=== PATIENT | male | born 1955 | race African-American/Black ===

== ENCOUNTER 2023-03-15 19:21 | Inpatient (IN) | payer MEDICARE, MEDICAID ==
[~2023-03-15] VITALS: Ht 172.7 cm; Wt 103.4 kg
[~2023-03-15 19:21] MED LIST: NO HOME MEDS
[2023-03-15] MEDS ORDERED: GADOTERATE MEGLUMINE 10 MMOL/20 ML VIAL IVP ONE (20:42)
[2023-03-15 21:14] LABS: BASOPHILS % (AUTO) 0.5 % (0.0-2.0); EOSINOPHILS % (AUTO) 5.4 % (1.0-6.0); HEMATOCRIT 37.5 % (41-53); HEMOGLOBIN 12.8 g/dL (13.5-17.5); LYMPHOCYTES # (AUTO) 1.6 K/uL (1.0-4.8); LYMPHOCYTES % (AUTO) 32.8 % (22.0-44.0); MEAN CORPUSCULAR VOLUME 85 fL (80-100); MONOCYTES # (AUTO) 0.4 K/uL (0.1-1.0); MONOCYTES % (AUTO) 7.3 % (2.0-9.0); NEUTROPHILS # (AUTO) 2.6 K/uL (1.8-7.7); PLATELET COUNT (AUTO) 241 K/uL (150-450); RED CELL DISTRIBUTION WIDTH 14.7 % (11.5-14.5)
[2023-03-15 21:23] LABS: ANION GAP 7 mmol/L (8-16); CALCIUM, TOTAL 9.1 mg/dL (8.8-10.5); CARBON DIOXIDE 29 mmol/L (22-29); CHLORIDE 101 mmol/L (98-107); CREATININE 0.94 mg/dL (0.60-1.30); GLOMERULAR FILTR. RATE CALC > 60 mL/min (>60); GLUCOSE,RANDOM 134 mg/dL (70-110); POTASSIUM 3.4 mmol/L (3.5-5.1); SODIUM SERUM 137 mmol/L (136-145)
[2023-03-15 21:25] LABS: INR 1.1 (0.9-1.1); PROTHROMBIN TIME 11.1 SEC (9.4-11.6)
[2023-03-15 21:28] LABS: ALANINE AMINOTRANSFERASE 24 U/L (12-78); ALBUMIN 3.3 g/dL (3.4-5.0); ALKALINE PHOSPHATASE 79 U/L (46-116); ASPARTATE AMINOTRANSFERASE 32 U/L (15-37); BILIRUBIN,TOTAL 0.5 mg/dL (0.1-1.0); C-REACTIVE PROTEIN QUANT 1.17 mg/dL (0.00-0.30); TOTAL PROTEIN, SERUM 7.7 g/dL (6.4-8.2)
[2023-03-15] MEDS ORDERED: ZOLPIDEM TARTRATE 5 MG TABLET PO PRN (23:15)
[2023-03-15] MEDS ORDERED: IPRATROPIUM BROMIDE 0.5 MG/2.5 ML NEB SOLUTION NEB PRN (23:15)
[2023-03-15] MEDS ORDERED: BISACODYL 10 MG RECTAL RECTAL SUPPOSITORY PR PRN (23:15)
[2023-03-15] MEDS ORDERED: MORPHINE SULFATE 2 MG/ML SYRINGE IVP PRN (23:15)
[2023-03-15] MEDS ORDERED: ACETAMINOPHEN 325 MG TABLET PO PRN (23:15)
[2023-03-15] MEDS ORDERED: ONDANSETRON HCL 4 MG/2 ML VIAL IVP PRN (23:15)
[2023-03-15] MEDS ORDERED: ALBUTEROL SULFATE 2.5 MG/0.5 ML NEB SOLUTION NEB PRN (23:15)
[2023-03-15 23:18] VITALS: BP 132/72
[2023-03-16] MEDS: HEPARIN SODIUM,PORCINE 5,000 UNITS/ML VIAL SQ SCH ×4 (00:15→23:12)
[2023-03-16] MEDS: HYDROCODONE/ACETAMINOPHEN 5-325 MG TABLET PO PRN ×4 (00:15→23:30)
[2023-03-16 04:00] VITALS: BP 120/70
[2023-03-16 07:47] VITALS: BP 110/56
[2023-03-16] MEDS: DOCUSATE SODIUM 100 MG CAPSULE PO SCH ×2 (09:32→19:51)
[2023-03-16] MEDS: PANTOPRAZOLE SODIUM 40 MG/VIAL IVP SCH (09:32)
[2023-03-16 14:31] LABS: GLUCOMETER DEV NAME(LOC) 6N.2B; GLUCOSE,POINT OF CARE 118 MG/DL (70-110)
[2023-03-16] MEDS: FUROSEMIDE 20 MG/2 ML VIAL IVP SCH (14:46)
[2023-03-16 16:37] VITALS: BP 121/74
[2023-03-16] MEDS: MORPHINE SULFATE 2 MG/ML SYRINGE IVP PRN (18:54)
[2023-03-16 19:16] VITALS: BP 139/81
[2023-03-16] MEDS: MAGNESIUM HYDROXIDE SUSPENSION 30 ML UDCUP PO PRN (19:51)
[2023-03-17 04:06] VITALS: BP 126/72
[2023-03-17 07:35] VITALS: BP 134/78
[2023-03-17] MEDS: HEPARIN SODIUM,PORCINE 5,000 UNITS/ML VIAL SQ SCH ×3 (08:29→23:19)
[2023-03-17] MEDS: FUROSEMIDE 20 MG/2 ML VIAL IVP SCH (08:30)
[2023-03-17] MEDS: PANTOPRAZOLE SODIUM 40 MG/VIAL IVP SCH (08:35)
[2023-03-17] MEDS: DOCUSATE SODIUM 100 MG CAPSULE PO SCH ×2 (08:36→20:10)
[2023-03-17] MEDS: MAGNESIUM HYDROXIDE SUSPENSION 30 ML UDCUP PO PRN (08:41)
[2023-03-17] MEDS: MORPHINE SULFATE 2 MG/ML SYRINGE IVP PRN (08:49)
[2023-03-17 11:57] LABS: GLUCOMETER DEV NAME(LOC) 4E.2; GLUCOSE,POINT OF CARE 167 MG/DL (70-110)
[2023-03-17] MEDS: HYDROCODONE/ACETAMINOPHEN 5-325 MG TABLET PO PRN (15:21)
[2023-03-17] MEDS ORDERED: PREDAOS OS (15:36)
[2023-03-17] MEDS ORDERED: HYDR-4723 PO (15:36)
[2023-03-17] MEDS ORDERED: ATOR40TA28 PO (15:36)
[2023-03-17] MEDS ORDERED: LEVO137T24 PO (15:36)
[2023-03-17] MEDS ORDERED: ASPI-1450 PO (15:36)
[2023-03-17] MEDS ORDERED: TIRZ15PE SQ (15:36)
[2023-03-17] MEDS ORDERED: BICT1TAB PO (15:36)
[2023-03-17] MEDS ORDERED: LISI-894 PO (15:36)
[2023-03-17] MEDS ORDERED: CHL25 PO (15:36)
[2023-03-17] MEDS ORDERED: INSU100I70 SQ (15:39)
[2023-03-17] MEDS ORDERED: INSU100I15 SQ (15:43)
[2023-03-17 15:46] VITALS: BP 146/86
[2023-03-17 16:14] LABS: ANION GAP 4 mmol/L (8-16); CALCIUM, TOTAL 9.1 mg/dL (8.8-10.5); CARBON DIOXIDE 31 mmol/L (22-29); CHLORIDE 102 mmol/L (98-107); CREATININE 1.06 mg/dL (0.60-1.30); GLOMERULAR FILTR. RATE CALC > 60 mL/min (>60); GLUCOSE,RANDOM 228 mg/dL (70-110); POTASSIUM 3.6 mmol/L (3.5-5.1); SODIUM SERUM 137 mmol/L (136-145)
[2023-03-17] MEDS ORDERED: DEXTROSE 50%-WATER 25 GM/50 ML SYRINGE IVP PRN (17:45)
[2023-03-17] MEDS: INSULIN LISPRO 100 UNITS/ML SQ PRN (17:54)
[2023-03-17 20:11] VITALS: BP 137/72
[2023-03-17 20:41] LABS: GLUCOMETER DEV NAME(LOC) 6N.1; GLUCOSE,POINT OF CARE 216 MG/DL (70-110)
[2023-03-18] MEDS: FUROSEMIDE 20 MG TABLET PO SCH (07:58)
[2023-03-18] MEDS: PANTOPRAZOLE SODIUM 40 MG/VIAL IVP SCH (07:58)
[2023-03-18] MEDS: BICTEGRAV/EMTRICIT/TENOFOV ALA 50-200-25 MG TABLET PO SCH (07:58)
[2023-03-18] MEDS: HEPARIN SODIUM,PORCINE 5,000 UNITS/ML VIAL SQ SCH ×2 (08:00→16:05)
[2023-03-18] MEDS: DOCUSATE SODIUM 100 MG CAPSULE PO SCH ×2 (08:01→21:00)
[2023-03-18 08:09] VITALS: BP 134/82
[2023-03-18] MEDS: INSULIN LISPRO 100 UNITS/ML SQ PRN ×2 (11:46→17:25)
[2023-03-18 13:11] LABS: GLUCOMETER DEV NAME(LOC) 6N.2B; GLUCOSE,POINT OF CARE 161 MG/DL (70-110)
[2023-03-18 16:13] VITALS: BP 144/80
[2023-03-18] MEDS: AmLODIPine BESYLATE 5 MG TABLET PO SCH (17:18)
[2023-03-18 19:18] VITALS: BP 129/78
[2023-03-18 20:25] LABS: GLUCOMETER DEV NAME(LOC) 6N.2B; GLUCOSE,POINT OF CARE 167 MG/DL (70-110)
[2023-03-18 21:36] LABS: GLUCOMETER DEV NAME(LOC) 6N.1; GLUCOSE,POINT OF CARE 152 MG/DL (70-110)
[2023-03-19] MEDS: HEPARIN SODIUM,PORCINE 5,000 UNITS/ML VIAL SQ SCH ×2 (00:44→08:33)
[2023-03-19 04:53] VITALS: BP 132/77
[2023-03-19 05:51] LABS: GLUCOMETER DEV NAME(LOC) 4E.2; GLUCOSE,POINT OF CARE 170 MG/DL (70-110)
[2023-03-19] MEDS: INSULIN LISPRO 100 UNITS/ML SQ PRN ×2 (06:12→11:35)
[2023-03-19] MEDS: MAGNESIUM HYDROXIDE SUSPENSION 30 ML UDCUP PO PRN (06:16)
[2023-03-19 07:51] LABS: GLUCOMETER DEV NAME(LOC) 6S.1B; GLUCOSE,POINT OF CARE 172 MG/DL (70-110)
[2023-03-19] MEDS: BICTEGRAV/EMTRICIT/TENOFOV ALA 50-200-25 MG TABLET PO SCH (08:31)
[2023-03-19] MEDS: FUROSEMIDE 20 MG TABLET PO SCH (08:31)
[2023-03-19] MEDS: AmLODIPine BESYLATE 5 MG TABLET PO SCH (08:31)
[2023-03-19] MEDS: PANTOPRAZOLE SODIUM 40 MG/VIAL IVP SCH (08:32)
[2023-03-19] MEDS: MORPHINE SULFATE 2 MG/ML SYRINGE IVP PRN (08:36)
[2023-03-19] MEDS: DOCUSATE SODIUM 100 MG CAPSULE PO SCH (08:37)
[2023-03-19 08:42] VITALS: BP 151/98
[2023-03-19 12:10] LABS: GLUCOMETER DEV NAME(LOC) 4E.2; GLUCOSE,POINT OF CARE 196 MG/DL (70-110)
[2023-03-19] MEDS ORDERED: AMLO-257 PO (15:03)
[2023-03-19] MEDS ORDERED: DOCU-385 PO (15:04)
[2023-03-19] MEDS ORDERED: FURO20 PO (15:05)
[2023-03-19] MEDS ORDERED: HEPA500018 SQ (15:06)
[2023-03-19] MEDS ORDERED: PANT-31 PO (15:07)
[2023-03-19] MEDS ORDERED: ACET-2247 PO (15:08)
[2023-03-19] MEDS ORDERED: HYDR-4396 PO (15:09)
[2023-03-19] MEDS ORDERED: INSU100V SQ (15:14)
[2023-03-19 15:35] VITALS: BP 148/82
== END 2023-03-19 17:00 | DRG 921 ==
LOC: EMS 19:21 → 5S 22:00 → 6S 03-16 11:50
PROVIDERS: ADMIT Hospitalist; ATTEND Hospitalist
DX: G97.63 Postprocedural seroma of a nervous system organ or structure following a nervous system procedure (principal); G89.29 Other chronic pain; E11.9 Type 2 diabetes mellitus without complications; D63.8 Anemia in other chronic diseases classified elsewhere; E66.9 Obesity, unspecified; Z68.34 Body mass index [BMI] 34.0-34.9, adult; I10 Essential (primary) hypertension; Z21 Asymptomatic human immunodeficiency virus [HIV] infection status; E03.9 Hypothyroidism, unspecified; Y83.8 Other surgical procedures as the cause of abnormal reaction of the patient, or of later complication, without mention of misadventure at the time of the procedure; E87.6 Hypokalemia; Z88.0 Allergy status to penicillin; Y92.89 Other specified places as the place of occurrence of the external cause
CPT/HCPCS: 72158; 80048; 80053; 82962; 85025; 85610; 85730; 86140; 87040; 93005; 93306; 93970; 97110; 97116; 97163; 97166; 97530; 97535; 99285; C9113; G0378; J1644; J1940; J2270; Q9967

== ENCOUNTER 2023-04-17 06:54 | Emergency (ER) | payer MEDICARE, MEDICAID ==
[~2023-04-17] VITALS: Ht 172.7 cm; Wt 104.5 kg
[~2023-04-17 06:54] MED LIST changes: +ACET-2247 PO; +AMLO-257 PO; +ASPI-1450 PO; +ATOR40TA28 PO; +BICT1TAB PO; +DOCU-385 PO; +FURO20 PO; +HEPA500018 SQ; +HYDR-4396 PO; +INSU100V SQ; +LEVO137T24 PO; -NO HOME MEDS; +PANT-31 PO
[2023-04-17 07:02] VITALS: TEMP 98.7
[2023-04-17] MEDS ORDERED: KETOROLAC TROMETHAMINE 60 MG/2 ML VIAL IM ONE (07:30)
[2023-04-17 09:00] VITALS: BP 126/72; PULSE 87; RESP 16
== END 2023-04-17 09:12 | disposition home or self-care (01) ==
LOC: EMS 06:55
DX: E11.40 Type 2 diabetes mellitus with diabetic neuropathy, unspecified (principal); I10 Essential (primary) hypertension; E05.90 Thyrotoxicosis, unspecified without thyrotoxic crisis or storm; F17.210 Nicotine dependence, cigarettes, uncomplicated; Z88.0 Allergy status to penicillin
CPT/HCPCS: 99283; 96372; J1885

== ENCOUNTER 2023-07-11 00:57 | Emergency (ER) | payer MEDICARE, MEDICAID ==
[~2023-07-11] VITALS: Ht 172.7 cm; Wt 92.0 kg
[~2023-07-11 00:57] MED LIST changes: -HEPA500018 SQ; -PANT-31 PO
[2023-07-11 01:30] VITALS: BP 110/78; PULSE 77; RESP 17; TEMP 98.5
[2023-07-11] MEDS ORDERED: LIDO700A15 TP (01:37)
[2023-07-11] MEDS ORDERED: IBUP-1493 PO (01:37)
[2023-07-11] MEDS ORDERED: KETOROLAC TROMETHAMINE 30 MG/ML VIAL IM ONE (01:45)
[2023-07-11] MEDS ORDERED: KETOROLAC TROMETHAMINE 60 MG/2 ML VIAL IM ONE (02:00)
== END 2023-07-11 02:31 | disposition home or self-care (01) ==
LOC: EMS 00:57
DX: M62.830 Muscle spasm of back (principal); E11.9 Type 2 diabetes mellitus without complications; I10 Essential (primary) hypertension; F17.210 Nicotine dependence, cigarettes, uncomplicated; E05.90 Thyrotoxicosis, unspecified without thyrotoxic crisis or storm; Z88.0 Allergy status to penicillin
CPT/HCPCS: 99283; 96372; J1885

== ENCOUNTER 2024-05-11 19:17 | Inpatient (IN) | payer MEDICARE, MEDICAID ==
[~2024-05-11] VITALS: Ht 172.7 cm; Wt 97.7 kg
[~2024-05-11 19:17] MED LIST changes: +IBUP-1493 PO; +LIDO700A15 TP
[2024-05-11 19:56] LABS: GLUCOMETER DEV NAME(LOC) ER.7; GLUCOSE,POINT OF CARE 193 MG/DL (70-110)
[2024-05-11 20:19] LABS: BASOPHILS % (AUTO) 0.5 % (0.0-2.0); HEMATOCRIT 39.6 % (41-53); HEMOGLOBIN 13.6 g/dL (13.5-17.5); LYMPHOCYTES # (AUTO) 1.9 K/uL (1.0-4.8); LYMPHOCYTES % (AUTO) 36.3 % (22.0-44.0); MEAN CORPUSCULAR HEMOGLOBIN 29.6 pg (26.0-34.0); MEAN CORPUSCULAR HGB CONC 34.3 G/dL (31.0-37.0); MEAN CORPUSCULAR VOLUME 86 fL (80-100); MONOCYTES # (AUTO) 0.4 K/uL (0.1-1.0); MONOCYTES % (AUTO) 8.4 % (2.0-9.0); NEUTROPHILS # (AUTO) 2.6 K/uL (1.8-7.7); NEUTROPHILS % (AUTO) 48.8 % (40.0-70.0); PLATELET COUNT (AUTO) 153 K/uL (150-450); RED BLOOD CELL COUNT(AUTO) 4.59 MIL/uL (4.50-5.90); RED CELL DISTRIBUTION WIDTH 15.3 % (11.5-14.5); WHITE BLOOD COUNT (AUTO) 5.3 K/uL (4.5-11.0)
[2024-05-11 20:28] LABS: ANION GAP 9 mmol/L (8-16); CALCIUM, TOTAL 8.4 mg/dL (8.8-10.5); CARBON DIOXIDE 27 mmol/L (22-29); CHLORIDE 102 mmol/L (98-107); CREATININE 1.44 mg/dL (0.60-1.30); GLOMERULAR FILTR. RATE CALC 59 mL/min (>60); GLUCOSE,RANDOM 194 mg/dL (70-110); POTASSIUM 4.5 mmol/L (3.5-5.1); SODIUM SERUM 138 mmol/L (136-145); UREA NITROGEN, BLOOD 27 mg/dL (7-18)
[2024-05-11 20:36] LABS: B-TYPE NATRIURETIC PEPTIDE < 5 pg/mL (0-100); TROPONIN I-HIGH SENSITIVITY 5 ng/L (<76)
[2024-05-11] MEDS: FUROSEMIDE 20 MG/2 ML VIAL IVP ONE (22:40)
[2024-05-11 22:58] LABS: ALBUMIN 3.3 g/dL (3.4-5.0); BILIRUBIN,DIRECT 0.2 mg/dL (0.00-0.20); BILIRUBIN,TOTAL 0.4 mg/dL (0.1-1.0); TOTAL PROTEIN, SERUM 7.2 g/dL (6.4-8.2)
[2024-05-11] MEDS ORDERED: OxyCODONE HCL/ACETAMINOPHEN 5-325 MG TABLET PO PRN (23:30)
[2024-05-11] MEDS ORDERED: DEXTROSE 50%-WATER 25 GM/50 ML SYRINGE IVP PRN (23:30)
[2024-05-11] MEDS ORDERED: INSULIN LISPRO 100 UNITS/ML SQ PRN (23:30)
[2024-05-11] MEDS ORDERED: ACETAMINOPHEN 325 MG TABLET PO PRN (23:30)
[2024-05-12] MEDS: HEPARIN SODIUM,PORCINE 5,000 UNITS/ML VIAL SQ SCH
[2024-05-12 01:27] LABS: APPEARANCE,URINE CLEAR (CLEAR); BILIRUBIN,URINE NEGATIVE (NEGATIVE); COLOR,URINE COLORLESS (YELLOW); GLUCOSE, URINE (UA) 70-100 mg/dL (NEGATIVE); KETONES,URINE NEGATIVE (NEGATIVE); LEUKOCYTE ESTERASE ,URINE NEGATIVE (NEGATIVE); NITRATE,URINE NEGATIVE (NEGATIVE); OCCULT BLOOD,URINE NEGATIVE (NEGATIVE); PH,URINE 7.5 (5.0-8.0); PROTEIN,URINE NEGATIVE (NEGATIVE); SPECIFIC GRAVITIY, URINE 1.012 (1.003-1.030); UROBILINOGEN,URINE <=1.0 mg/dL (<=1.0)
[2024-05-12 01:41] LABS: BACTERIA,URINE None Seen /HPF (None Seen); RBC,URINE None Seen /HPF (0-2); SQUAMOUS EPITHELIAL CELL,UR Few /LPF (None Seen); WBC,URINE None Seen /HPF (0-5)
[2024-05-12 04:00] VITALS: BP 143/85; PULSE 67; RESP 19; TEMP 97.5
[2024-05-12 08:40] VITALS: BP 140/76; PULSE 75; RESP 20; TEMP 97.5
[2024-05-12 09:00] LABS: GLUCOMETER DEV NAME(LOC) ERT.5; GLUCOSE,POINT OF CARE 205 MG/DL (70-110)
[2024-05-12] MEDS: FAMOTIDINE 20 MG TABLET PO SCH (09:00)
[2024-05-12] MEDS: DOCUSATE SODIUM 100 MG CAPSULE PO SCH (09:00)
[2024-05-12] MEDS ORDERED: LOSA-381 PO (09:51)
[2024-05-12 11:18] LABS: PH,URINE DRUG SCREEN 6.5 (5.0-8.0)
[2024-05-12 12:06] LABS: ALCOHOL, URINE DRUG SCREEN NEGATIVE (NEGATIVE); AMPHET/METH SCREEN,URINE NEGATIVE (NEGATIVE); BARBITURATE SCREEN, URINE NEGATIVE (NEGATIVE); BENZODIAZEPINES SCREEN,URINE NEGATIVE (NEGATIVE); CANNABINOID SCREEN,URINE NEGATIVE (NEGATIVE); COCAINE SCREEN,URINE NEGATIVE (NEGATIVE); METHADONE SCREEN, URINE NEGATIVE (NEGATIVE); OPIATE SCREEN,URINE NEGATIVE (NEGATIVE); PHENCYCLIDINE SCREEN,URINE NEGATIVE (NEGATIVE)
[2024-05-12 12:16] LABS: GLUCOMETER DEV NAME(LOC) 5N.1D; GLUCOSE,POINT OF CARE 172 MG/DL (70-110)
== END 2024-05-12 11:09 | disposition home or self-care (01) | DRG 948 ==
LOC: EMS 19:17 → EDH 05-12 02:23 → 5S 05-12 03:25
PROVIDERS: ADMIT Internal Medicine; ATTEND Internal Medicine
DX: R60.0 Localized edema (principal); I10 Essential (primary) hypertension; E66.9 Obesity, unspecified; E11.9 Type 2 diabetes mellitus without complications; E03.9 Hypothyroidism, unspecified; Z68.32 Body mass index [BMI] 32.0-32.9, adult; Z21 Asymptomatic human immunodeficiency virus [HIV] infection status; T46.1X5A Adverse effect of calcium-channel blockers, initial encounter
CPT/HCPCS: 71045; 80048; 80076; 80307; 81001; 81003; 82962; 83880; 84443; 84484; 85025; 93005; 93306; 99285; J1644; J1940; 36415-L1; 36415-TC

== ENCOUNTER 2025-03-19 20:48 | Emergency (ER) | payer MEDICARE, MEDICAID ==
[~2025-03-19] VITALS: Ht 170.2 cm; Wt 101.9 kg
[~2025-03-19 20:48] MED LIST changes: -ACET-2247 PO; -AMLO-257 PO; -FURO20 PO; -HYDR-4396 PO; -IBUP-1493 PO; -LIDO700A15 TP; +LOSA-381 PO
[2025-03-19] MEDS ORDERED: DEXTROSE 50%-WATER 25 GM/50 ML SYRINGE IVP ONE (20:55)
[2025-03-19 20:59] VITALS: TEMP 97.7
[2025-03-19] MEDS ORDERED: OXYC-618 PO (21:10)
[2025-03-19] MEDS ORDERED: LISI-1024 PO (21:10)
[2025-03-19] MEDS ORDERED: CHLO25TA3 PO (21:10)
[2025-03-19] MEDS ORDERED: ASPI-1444 PO (21:10)
[2025-03-19] MEDS ORDERED: LEVO112T7 PO (21:10)
[2025-03-19] MEDS: DEXTROSE 50%-WATER 25 GM/50 ML SYRINGE IVP ONE (22:13)
[2025-03-19] MEDS: SODIUM CHLORIDE 0.9% 1,000 ML IV ONE (22:25)
[2025-03-19] MEDS: DEXTROSE 10%-WATER 1,000 ML IV ONE (22:26)
[2025-03-19] MEDS: DEXTROSE 5%-0.9% SODIUM CHL 1,000 ML IV ONE (22:30)
[2025-03-19 23:00] VITALS: BP 106/58; PULSE 71; RESP 18; O2SAT 97
[2025-03-20 00:11] LABS: GLUCOMETER DEV NAME(LOC) ER.7; GLUCOSE,POINT OF CARE 77 MG/DL (70-110)
[2025-03-20 00:11] LABS: GLUCOMETER DEV NAME(LOC) ER.7; GLUCOSE,POINT OF CARE 76 MG/DL (70-110)
[2025-03-20 00:11] LABS: GLUCOMETER DEV NAME(LOC) ER.7; GLUCOSE,POINT OF CARE 42 MG/DL (70-110)
== END 2025-03-20 00:03 | disposition left against medical advice (07) ==
LOC: EMS 20:48
DX: E11.649 Type 2 diabetes mellitus with hypoglycemia without coma (principal); I10 Essential (primary) hypertension; F17.210 Nicotine dependence, cigarettes, uncomplicated; Z98.890 Other specified postprocedural states; Z88.0 Allergy status to penicillin; Z79.82 Long term (current) use of aspirin; Z79.4 Long term (current) use of insulin; Z79.899 Other long term (current) drug therapy
CPT/HCPCS: 99284; 96365; 96366; 82962; 93005; J7042

== ENCOUNTER 2025-07-28 14:51 | Emergency (ER) | payer MEDICARE, MEDICAID ==
[~2025-07-28] VITALS: Ht 177.8 cm; Wt 90.9 kg
[~2025-07-28 14:51] MED LIST changes: +ASPI-1444 PO; +CHLO25TA3 PO; +LEVO112T7 PO; +LISI-1024 PO; +OXYC-618 PO
[2025-07-28 15:07] VITALS: BP 103/77; PULSE 88; RESP 18; TEMP 98.1; O2SAT 99
[2025-07-28] MEDS ORDERED: ZOLP-280 PO (15:40)
== END 2025-07-28 16:33 | disposition home or self-care (01) ==
LOC: EMS 14:53
DX: G47.00 Insomnia, unspecified (principal); G89.29 Other chronic pain; M54.50 Low back pain, unspecified; E11.9 Type 2 diabetes mellitus without complications; I10 Essential (primary) hypertension; F17.210 Nicotine dependence, cigarettes, uncomplicated; Z79.82 Long term (current) use of aspirin; Z79.899 Other long term (current) drug therapy; Z88.0 Allergy status to penicillin; Z98.890 Other specified postprocedural states
CPT/HCPCS: 99283; Z7502

== ENCOUNTER 2025-08-05 06:37 | Emergency (ER) | payer MEDICARE, MEDICAID ==
[~2025-08-05] VITALS: Ht 172.7 cm; Wt 100.0 kg
[~2025-08-05 06:37] MED LIST changes: -ASPI-1450 PO; -DOCU-385 PO; -LEVO112T7 PO; +ZOLP-280 PO
[2025-08-05 07:01] VITALS: TEMP 97.9
[2025-08-05 08:39] VITALS: BP 158/72; PULSE 72; RESP 19; O2SAT 98
== END 2025-08-05 12:19 | disposition left against medical advice (07) ==
LOC: EMS 06:37
DX: M79.604 Pain in right leg (principal); M79.605 Pain in left leg; R60.0 Localized edema; E11.9 Type 2 diabetes mellitus without complications; I10 Essential (primary) hypertension; F17.210 Nicotine dependence, cigarettes, uncomplicated; Z79.82 Long term (current) use of aspirin; Z79.899 Other long term (current) drug therapy; Z88.0 Allergy status to penicillin; Z53.29 Procedure and treatment not carried out because of patient's decision for other reasons
CPT/HCPCS: 93970; 99284; Z7502

== ENCOUNTER 2025-08-18 23:10 | Emergency (ER) | payer MEDICARE, MEDICAID ==
[~2025-08-18] VITALS: Ht 170.2 cm; Wt 104.5 kg
[2025-08-18 23:41] LABS: GLUCOMETER DEV NAME(LOC) ERT.7; GLUCOSE,POINT OF CARE 212 MG/DL (70-110)
[2025-08-19] MEDS ORDERED: ZOLP-280 PO (00:24)
[2025-08-19 01:00] VITALS: BP 133/76; PULSE 71; RESP 16; TEMP 97.3; O2SAT 98
== END 2025-08-19 01:34 | disposition home or self-care (01) ==
LOC: EMS 23:10
DX: G47.00 Insomnia, unspecified (principal); G89.29 Other chronic pain; M54.9 Dorsalgia, unspecified; E11.9 Type 2 diabetes mellitus without complications; I10 Essential (primary) hypertension; Z79.82 Long term (current) use of aspirin; Z88.0 Allergy status to penicillin; Z79.899 Other long term (current) drug therapy
CPT/HCPCS: 82962; 99283